=== PATIENT | female | born 1985 | race Caucasian/White ===

== ENCOUNTER 2019-04-24 14:07 | Emergency (ER) | payer OTHER ==
[~2019-04-24] VITALS: Ht 172.7 cm; Wt 154.2 kg
--- OUTSIDE RECORDS SUMMARY | 2019-04-24 14:09 | XMS REPORT | Continuity of Care Document ---
Author Author [facility] Address [address] [place] [address] Care Team Providers Care Live Truck Operator Name Role Phone Jeffery Cazares Rndphys PROVIDER, NO PCP PCP Unavailable Abhi Sánchez Admphys Abhi Sánchez Attphys Sachin Regalado Rndphys Allergies, Adverse Reactions, Alerts Allergen Type Severity Reaction Last Updated Verified Status codeine Allergy Rash April 22, 2018 Y Active latex Allergy Hives April 22, 2018 Y Active Medications Active Medications Medication Dose Units Route Sig Qty Days Start Date Discontinued Date Status Instructions Multivit With Iron,Minerals 1 TABLET PO Daily March 04, 2018 Active Aspirin 81 MG PO Daily 90 March 13, 2018 Active Carvedilol 25 MG PO Twice Daily April 22, 2018 Active Levothyroxine Sodium 100 MCG PO 0600 30 April 24, 2018 Active Tramadol Hcl 50 MG PO Three Times Daily PRN For Pain 20 April 24, 2018 Active Discontinued Medications Medication Dose Units Route Sig Qty Days Start Date Discontinued Date Status Instructions Lactobacillus Acidophilus 1 CAPSULE PO Daily March 04, 2018 April 22, 2018 Discontinued Carvedilol 12.5 MG PO Three Times Daily 270 March 13, 2018 April 22, 2018 Discontinued Hydroxyzine 25 MG PO Q4H PRN For Itching 30 March 13, 2018 April 24, 2018 Discontinued Potassium Chloride 40 MEQ PO Daily 60 March 13, 2018 April 22, 2018 Discontinued Furosemide 40 MG PO 0900,1400 180 March 13, 2018 April 22, 2018 Discontinued Levothyroxine Sodium 75 MCG PO 0600 90 March 13, 2018 April 24, 2018 Discontinued Sacubitril/Valsartan 49/51 1 TAB PO Three Times Daily 270 March 13, 2018 April 22, 2018 Discontinued Spironolactone 50 MG PO Every Morning With Breakfast 90 March 13, 2018 April 24, 2018 Discontinued Sacubitril/Valsartan 49/51 1 TAB PO Twice Daily April 22, 2018 April 24, 2018 Discontinued Torsemide 20 MG PO Daily April 22, 2018 April 24, 2018 Discontinued Problem List Active Problems Medical Problem Onset Date Status Systolic CHF Active Dyspnea Active Hypothyroid Active Hypothyroidism Active Non-ischemic cardiomyopathy Active Acute on chronic systolic heart failure Active Chronic systolic heart failure, ACC/AHA stage C Active Morbid obesity with BMI of 40.0-44.9, adult Active Chest pain Active HTN (hypertension) Active Cardiomyopathy Active Demand ischemia Active Inactive/Resolved Problems Medical Problem Onset Date Status Acute respiratory failure with hypoxia Resolved Procedures Procedure Date Status US Abdominal April 22, 2018 completed XR Chest 1 View Portable April 21, 2018 completed EKG 12 Lead in Emergency Room April 21, 2018 completed Relevant Diagnostic Tests and/or Laboratory Data Laboratory Results Test Date/Time Result Interp. Ref. Range Result Comment Sodium Level April 24, 2018 8:40am 140 mmol/L 136-145 Potassium Level April 24, 2018 8:40am 4.0 mmol/L 3.5-5.1 Chloride Level April 24, 2018 8:40am 104 mmol/L 98-107 Carbon Dioxide Level April 24, 2018 8:40am 26 mmol/L 22-29 Anion Gap April 24, 2018 8:40am 14 mmol/L 10-20 Blood Urea Nitrogen April 24, 2018 8:40am 33 mg/dL High 7.0-18.7 Creatinine April 24, 2018 8:40am 1.40 mg/dL High 0.6-1.1 Estimated GFR (MDRD) April 24, 2018 8:40am 43 Reference Range for Estimated GFR: Greater than 90 mL/min/1.73 m2 NOTE: The MDRD equation has not been validated for use with the elderly (over 70 years of age), women, patients with serious comorbid condition or persons with extremes of body size, muscle mass, or nutritional status. Glucose Level April 24, 2018 8:40am 82 mg/dL 70-105 Calcium Level April 24, 2018 8:40am 9.5 mg/dL 7.8-10.44 Total Bilirubin April 21, 2018 6:50pm 0.5 mg/dL 0.2-1.2 Serum Total Protein April 21, 2018 6:50pm 8.2 g/dL 6.0-8.3 Albumin April 21, 2018 6:50pm 4.2 g/dL 3.5-5.0 Globulin April 21, 2018 6:50pm 4.0 g/dL High 2.4-3.5 Albumin/Globulin Ratio April 21, 2018 6:50pm 1.1 g/dL Low 1.2-2.2 Cholesterol Level April 22, 2018 6:02am 216 mg/dl High Alkaline Phosphatase April 21, 2018 6:50pm 51 U/L 40-150 Aspartate Amino Transf (AST/SGOT) April 21, 2018 6:50pm 27 U/L 5-34 Creatine Kinase MB April 23, 2018 5:44am 0.9 ng/mL 0-6.6 Troponin I April 23, 2018 5:44am 0.383 ng/mL High Critical value! Reference Range 0.00 - 0.028 ng/mL Negative 0.029 - 0.29 ng/mL Indeterminate Greater or Equal to 0.3 ng/mL Strongly suggests OR Alanine Aminotransferase (ALT/SGPT) April 21, 2018 6:50pm 18 U/L 8-55 Triglycerides Level April 22, 2018 6:02am 177 mg/dL High HDL Cholesterol April 22, 2018 6:02am 27 mg/dL Adult HDL levels in terms of risk for Coronary Heart Disease > or Equal to 60 mg/dL Negative Risk < 40 mg/dL HIGH Risk LDL Cholesterol, Calculated April 22, 2018 6:02am 154 mg/dL Levels in terms of risk for coronary heart disease: Desirable: Less than 130 mg/dL Borderline High Risk: 130 - 159 mg/dL High Risk: Greater than 160 mg/dL Coronary Heart Disease Risk Ratio April 22, 2018 6:02am 8.0 Adult levels in terms of risk for Coronary Heart Disease: Dangerous level: Greater than 8.3 High: 5.6 - 8.3 Average: 3.7 - 5.6 Below average: 2.5 - 3.7 Protection probable: Less than 2.5 TSH 3rd Generation April 22, 2018 6:02am 8.3364 uIU/mL High 0.35-4.94 Serum Test, Qualitative April 21, 2018 4:35pm Negative Method of sensitivity- Indeterminant: results should be repeated after 48-72 hrs Positive: results may be detected as early as 1 day after the first missed menses. B-Type Natriuretic Peptide April 22, 2018 6:02am 464.6 pg/mL High 0-100 White Blood Count April 22, 2018 6:02am 6.9 thou/uL 4.8-10.8 Red Blood Count April 22, 2018 6:02am 5.19 mill/uL 4.20-5.40 Hemoglobin April 22, 2018 6:02am 12.7 g/dL 12.0-16.0 Hematocrit April 22, 2018 6:02am 40.8 % 36.0-47.0 Mean Corpuscular Volume April 22, 2018 6:02am 78.6 fL 78.0-98.0 Mean Corpuscular Hemoglobin April 22, 2018 6:02am 24.5 pg Low 27.0-31.0 Mean Corpuscular Hemoglobin Concent April 22, 2018 6:02am 31.2 g/dL Low 32.0-36.0 Red Cell Distribution Width April 22, 2018 6:02am 18.2 % High 11.5-14.5 Platelet Count April 22, 2018 6:02am 240 thou/uL 130-400 Mean Platelet Volume April 22, 2018 6:02am 8.4 fL 7.4-10.4 Neutrophils % April 22, 2018 6:02am 58.3 % 42.0-75.0 Lymphocytes % April 22, 2018 6:02am 30.9 % 21.0-51.0 Monocytes % April 22, 2018 6:02am 8.5 % 0.0-10.0 Eosinophils % April 22, 2018 6:02am 1.9 % 0.0-10.0 Basophils % April 22, 2018 6:02am 0.4 % 0.0-1.0 Neutrophils # April 22, 2018 6:02am 4.0 thou/uL 1.40-6.50 Lymphocytes # April 22, 2018 6:02am 2.1 thou/uL 1.20-3.40 Monocytes # April 22, 2018 6:02am 0.6 thou/uL High 0.11-0.59 Eosinophils # April 22, 2018 6:02am 0.1 thou/uL 0.0-0.7 Basophils # April 22, 2018 6:02am 0.0 thou/uL 0.0-0.2 Neutrophils % (Manual) April 21, 2018 4:35pm Not Reportable Microcytosis April 21, 2018 4:35pm SLIGHT=6-15 cells (100X) Hypochromia April 21, 2018 4:35pm SLIGHT=6-15 cells (100X) Chief Complaint and Reason for Visit Encounter Admit Date Chief Complaint Reason for Visit Discharged Inpatient April 21, 2018 9:04pm CHEST PAIN, INDETERMINATE TROPONIN Chest pain Demand ischemia of myocardium ACC/AHA stage C chronic systolic heart failure Morbid obesity with body mass index (BMI) of 40.0 to 44.9 in adult Nonischemic Cardiomyopathy Hospital Discharge Instructions No known hospital discharge instructions. Hospital Discharge Medications Medication Dose Units Route Sig Qty Days Order Date Status Instructions Lactobacillus Acidophilus 1 CAPSULE PO Daily March 04, 2018 Discontinued Multivit With Iron,Minerals 1 TABLET PO Daily March 04, 2018 Active Aspirin 81 MG PO Daily 90 March 13, 2018 Active Carvedilol 12.5 MG PO Three Times Daily 270 March 13, 2018 Discontinued Hydroxyzine 25 MG PO Q4H PRN For Itching 30 March 13, 2018 Discontinued Potassium Chloride 40 MEQ PO Daily 60 March 13, 2018 Discontinued Furosemide 40 MG PO 0900,1400 180 March 13, 2018 Discontinued Levothyroxine Sodium 75 MCG PO 0600 90 March 13, 2018 Discontinued Sacubitril/Valsartan 49/51 1 TAB PO Three Times Daily 270 March 13, 2018 Discontinued Spironolactone 50 MG PO Every Morning With Breakfast 90 March 13, 2018 Discontinued Carvedilol 25 MG PO Twice Daily April 22, 2018 Active Sacubitril/Valsartan 49/51 1 TAB PO Twice Daily April 22, 2018 Discontinued Torsemide 20 MG PO Daily April 22, 2018 Discontinued Levothyroxine Sodium 100 MCG PO 0600 30 April 24, 2018 Active Tramadol Hcl 50 MG PO Three Times Daily PRN For Pain 20 April 24, 2018 Active Encounters Encounter Facility Location Admit Date Discharge Date Attending Provider Discharged Inpatient [facility] April 21, 2018 9:04pm April 24, 2018 12:11pm Abhi Sánchez Departed Emergency [facility] EM[facility] April 21, 2018 4:05pm April 21, 2018 6:12pm Registered Clinical [facility] (REF FACILITY) April 14, 2018 10:13am JosieCaro fuentesy Discharged Recurring [facility] OUTPT CARDIAC REHAB/[facility] April 12, 2018 10:41am April 15, 2018 11:59pm AYLA SAWANT Encounter Diagnosis Onset Date Chest pain Demand ischemia of myocardium ACC/AHA stage C chronic systolic heart failure Morbid obesity with body mass index (BMI) of 40.0 to 44.9 in adult Nonischemic Cardiomyopathy Family History Query Response Instance Date Recorded Comment Family Stroke Yes Mother April 22, 2018 12:00am Family Myocardial Infarction Yes Mother April 22, 2018 12:00am Family Diabetes Yes Mother April 22, 2018 12:00am Family Coronary Artery Disease No Mother April 22, 2018 12:00am Family Congenital Heart Disease Yes Mother April 22, 2018 12:00am Family Colorectal Cancer No Mother April 22, 2018 12:00am Family Breast Cancer No Mother April 22, 2018 12:00am Functional Status No known functional status. Immunizations Name Date Given Type Influenza Virus March 05, 2018 Administered Pneumococcal March 05, 2018 Administered Payers Payer Name Policy Type Covered [employer] Covered [employer] Party Id Relationship Subscriber Subscriber Id UNINSURED Personal Payment (Rodrigues - No Insurance) BERYL MORRIS [id number] SELF Plan of Care Instructions Tramadol tablets Levothyroxine tablets Dc Taking Med Safely Heart Failure Dc ED Hypothyroidism ED Chest Pain Noncardiac Ch TAKE CONTROL OF HEART FAILURE Together we can! o Weigh yourself daily every morning after going to the bathroom. Call your health care provider if you gain 2 pounds in a day or 5 pounds in a week. Use the daily log provided to record your weight. o Eat no more than 2 grams (2000mg) sodium (salt) a day. Read food labels and throw away the salt shaker! o Your personal fluid limit: Take in no more than [ 1500 ] ml, equal to [ 6 ] Cups PER DAY. This includes anything that is liquid at room temperature. o Take your Medications as prescribed. Do not skip doses. If you can't afford your medications, please let your doctor know. o Watch for worsening heart failure symptoms such as increased swelling or increased shortness of breath with activity or at rest. o Follow-up with your primary care provider within 1 week of discharge from the hospital. o Maintain activity as tolerated with frequent rest periods. o If you smoke - smoking puts stress on your heart. We can help you quit smoking, just ask. o Expect a follow up call in one to three days if you are being discharged to your home. Please go to [email or web address]/myhfguide to learn even more about managing your heart failure using the free interactive workbook. Social History Query Response Date Recorded Comment Smoking Status Former smoker March 05, 2018 5:19am Vital Signs Vital Reading Result Reference Range Collection Date/Time Height 1.73 m April 22, 2018 12:00am Weight 133.039 kg April 24, 2018 5:45am Temperature 97.5 F 97.6 F-99.6 F April 24, 2018 11:33am Pulse 63 BPM 60-100 April 24, 2018 11:33am Respiration 18 RPM 12-20 April 24, 2018 11:33am Pulse Oximetry 97 % 95-100 April 24, 2018 11:33am Blood Pressure Systolic 124 90-140 April 24, 2018 11:33am Blood Pressure Diastolic 85 60-90 April 24, 2018 11:33am Body Mass Index 44.2 April 22, 2018 12:00am
--- OUTSIDE RECORDS SUMMARY | 2019-04-24 14:09 | XMS REPORT | Continuity of Care Document ---
Author Author [facility] Address [address] [place] [address] Care Team Providers Care [employer] Professional Name Role Phone Beryl Hall Rndphys Bairon Rodriguez Admphys Bairon Rodriguez Attphys Sachin Regalado Rndphys Bree Velez PCP Allergies, Adverse Reactions, Alerts Allergen Type Severity Reaction Last Updated Verified Status codeine Allergy March 05, 2018 Y Active latex Allergy March 05, 2018 Y Active Medications Active Medications Medication Dose Units Route Sig Qty Days Start Date Discontinued Date Status Instructions Lactobacillus Acidophilus 1 CAPSULE PO Daily March 04, 2018 Active Multivit With Iron,Minerals 1 TABLET PO Daily March 04, 2018 Active Aspirin 81 MG PO Daily 90 March 13, 2018 Active Carvedilol 12.5 MG PO Three Times Daily 270 March 13, 2018 Active Hydroxyzine 25 MG PO Q4H PRN For Itching 30 March 13, 2018 Active Potassium Chloride 40 MEQ PO Daily 60 March 13, 2018 Active Furosemide 40 MG PO 0900,1400 180 March 13, 2018 Active Levothyroxine Sodium 75 MCG PO 0600 90 March 13, 2018 Active Sacubitril/Valsartan 49/51 1 TAB PO Three Times Daily 270 March 13, 2018 Active Spironolactone 50 MG PO Every Morning With Breakfast 90 March 13, 2018 Active Problem List Active Problems Medical Problem Onset Date Status Systolic CHF Active Dyspnea Active Hypothyroid Active Hypothyroidism Active Acute on chronic systolic heart failure Active HTN (hypertension) Active Cardiomyopathy Active Inactive/Resolved Problems Medical Problem Onset Date Status Acute respiratory failure with hypoxia Resolved Procedures Procedure Date Status Urine Culture March 04, 2018 completed US Venous Doppler Bilat March 04, [address] Abdomen Pelvis W Con March 04, 2018 completed XR Chest 1 View Portable March 04, 2018 completed NM Lung Vent & Perf Imaging March 04, 2018 completed EKG 12 Lead in Emergency Room March 04, 2018 active US Pelvic March 04, 2018 completed Relevant Diagnostic Tests and/or Laboratory Data Laboratory Results Test Date/Time Result Interp. Ref. Range Result Comment Sodium Level March 13, 2018 4:32am 139 mmol/L 136-145 Potassium Level March 13, 2018 4:32am 4.1 mmol/L 3.5-5.1 Chloride Level March 13, 2018 4:32am 100 mmol/L 98-107 Carbon Dioxide Level March 13, 2018 4:32am 30 mmol/L High 22-29 Anion Gap March 13, 2018 4:32am 13 mmol/L 10-20 Blood Urea Nitrogen March 13, 2018 4:32am 14 mg/dL 7.0-18.7 Creatinine March 13, 2018 4:32am 0.85 mg/dL 0.6-1.1 Estimated GFR (MDRD) March 13, 2018 4:32am 77 Reference Range for Estimated GFR: Greater than 90 mL/min/1.73 m2 NOTE: The MDRD equation has not been validated for use with the elderly (over 70 years of age), women, patients with serious comorbid condition or persons with extremes of body size, muscle mass, or nutritional status. Glucose Level March 13, 2018 4:32am 106 mg/dL High 70-105 Calcium Level March 13, 2018 4:32am 9.3 mg/dL 7.8-10.44 Total Bilirubin March 05, 2018 6:01am 1.4 mg/dL High 0.2-1.2 Serum Total Protein March 05, 2018 6:01am 6.3 g/dL 6.0-8.3 Albumin March 05, 2018 6:01am 3.1 g/dL Low 3.5-5.0 Globulin March 05, 2018 6:01am 3.2 g/dL 2.4-3.5 Albumin/Globulin Ratio March 05, 2018 6:01am 1.0 g/dL Low 1.2-2.2 Cholesterol Level March 05, 2018 6:01am 112 mg/dl Alkaline Phosphatase March 05, 2018 6:01am 50 U/L 40-150 Aspartate Amino Transf (AST/SGOT) March 05, 2018 6:01am 63 U/L High 5-34 Creatine Kinase MB March 04, 2018 6:34pm 10.5 ng/mL High 0-6.6 Critical value! Troponin I March 04, 2018 9:44pm 14.503 ng/mL High Critical value! Reference Range 0.00 - 0.028 ng/mL Negative 0.029 - 0.29 ng/mL Indeterminate Greater or Equal to 0.3 ng/mL Strongly suggests IN Troponin I March 04, 2018 2:26pm 18.121 ng/mL High Reference Range 0.00 - 0.028 ng/mL Negative 0.029 - 0.29 ng/mL Indeterminate Greater or Equal to 0.3 ng/mL Strongly suggests IN Alanine Aminotransferase (ALT/SGPT) March 05, 2018 6:01am 42 U/L 8-55 Lipase March 04, 2018 2:26pm 124 U/L High 8-78 Triglycerides Level March 05, 2018 6:01am 73 mg/dL HDL Cholesterol March 05, 2018 6:01am 18 mg/dL Adult HDL levels in terms of risk for Coronary Heart Disease > or Equal to 60 mg/dL Negative Risk < 40 mg/dL HIGH Risk LDL Cholesterol, Calculated March 05, 2018 6:01am 79 mg/dL Levels in terms of risk for coronary heart disease: Desirable: Less than 130 mg/dL Borderline High Risk: 130 - 159 mg/dL High Risk: Greater than 160 mg/dL Coronary Heart Disease Risk Ratio March 05, 2018 6:01am 6.2 Adult levels in terms of risk for Coronary Heart Disease: Dangerous level: Greater than 8.3 High: 5.6 - 8.3 Average: 3.7 - 5.6 Below average: 2.5 - 3.7 Protection probable: Less than 2.5 Free Thyroxine March 05, 2018 6:01am 0.82 ng/dL 0.70-1.48 TSH 3rd Generation March 04, 2018 2:26pm 13.2594 uIU/mL High 0.35-4.94 Urine Test March 04, 2018 2:26pm Negative Method of sensitivity- INDETERMINANT: results should be repeated after 48-72 hrs POSITIVE: results may be detected as early as 1 day after the first missed period A dilute urine specimen may not contain sales representative livestock levels of hCG. If is still suspected, a first morning urine specimen OR a random blood specimen should be obtained from the patient 48-72 hours later and re-tested. Urine Specific [place] March 04, 2018 2:26pm 1.025 1.002-1.036 B-Type Natriuretic Peptide March 05, 2018 6:01am 2827.2 pg/mL High 0-100 Hemoglobin A1c March 05, 2018 6:01am 5.8 % 4.0-6.0 Therapeutic goals for glycemic control (ADA) Adults: - Goal of therapy: Less than 7.0% HbA1c - Action suggested: Greater than 8.0% HbA1c Pediatric patients: - Toddlers and preschoolers: Less than 8.5% (but Greater than 7.5%) - School age (6-12 years): Less than 8% - Adolescents and young adults (13-19 years): Less than 7.5% Diagnosing diabetes (ADA) - HbA1c: Greater than or equal to 6.5% Values of 5.7 - 6.4% indicate HIGH risk for developing Diabetes International Expert Committee Report on the Role of the A1C Assay in the Diagnosis of Diabetes. Diabetes Care 2009 September;32(7):1416-5614 ADA, Diagnosis & classification of diabetes mellitus. Diabetes Care 2010; 33 Suppl 1:S62 Lactic Acid Level March 04, 2018 9:44pm 1.7 mmol/L 0.5-2.2 White Blood Count March 05, 2018 6:01am 8.9 thou/uL 4.8-10.8 Red Blood Count March 05, 2018 6:01am 4.66 mill/uL 4.20-5.40 Hemoglobin March 11, 2018 10:33am 11.7 g/dL Low 12.0-16.0 Hematocrit March 11, 2018 10:33am 39.8 % 36.0-47.0 Mean Corpuscular Volume March 05, 2018 6:01am 77.8 fL Low 78.0-98.0 Mean Corpuscular Hemoglobin March 05, 2018 6:01am 24.2 pg Low 27.0-31.0 Mean Corpuscular Hemoglobin Concent March 05, 2018 6:01am 31.1 g/dL Low 32.0-36.0 Red Cell Distribution Width March 05, 2018 6:01am 15.3 % High 11.5-14.5 Platelet Count March 11, 2018 10:33am 278 thou/uL 130-400 Mean Platelet Volume March 05, 2018 6:01am 7.8 fL 7.4-10.4 Neutrophils % March 04, 2018 2:26pm 76.1 % High 42.0-75.0 Lymphocytes % March 04, 2018 2:26pm 18.1 % Low 21.0-51.0 Monocytes % March 04, 2018 2:26pm 4.8 % 0.0-10.0 Eosinophils % March 04, 2018 2:26pm 0.2 % 0.0-10.0 Basophils % March 04, 2018 2:26pm 0.8 % 0.0-1.0 Neutrophils # March 04, 2018 2:26pm 7.7 thou/uL High 1.40-6.50 Lymphocytes # March 04, 2018 2:26pm 1.8 thou/uL 1.20-3.40 Monocytes # March 04, 2018 2:26pm 0.5 thou/uL 0.11-0.59 Eosinophils # March 04, 2018 2:26pm 0.0 thou/uL 0.0-0.7 Basophils # March 04, 2018 2:26pm 0.1 thou/uL 0.0-0.2 Neutrophils % (Manual) March 05, 2018 6:01am 68 % 42-75 Lymphocytes % (Manual) March 05, 2018 6:01am 29 % 21-51 Monocytes % (Manual) March 05, 2018 6:01am 2 % 0-10 Eosinophils % (Manual) March 05, 2018 6:01am 1 % 0-10 Microcytosis March 04, 2018 2:26pm MODERATE=15-30 cells (100X) High Hypochromia March 04, 2018 2:26pm MODERATE=16-30 cells (100X) High Ovalocytes March 04, 2018 2:26pm SLIGHT=2-5 cells (100X) Activated Clotting Time March 08, 2018 12:15pm 137 sec 96-166 Urine Color March 04, 2018 2:26pm Yellow Urine Clarity March 04, 2018 2:26pm Slightly Cloudy Urine pH March 04, 2018 2:26pm 6.5 5.0-9.0 Urine Leukocyte Esterase March 04, 2018 2:26pm Negative Urine Nitrite March 04, 2018 2:26pm Negative Urine Protein March 04, 2018 2:26pm > or equal to 300 mg/dL High Urine Glucose (UA) March 04, 2018 2:26pm Negative mg/dL Urine Ketones March 04, 2018 2:26pm Negative mg/dL Urine Urobilinogen March 04, 2018 2:26pm 1.0 mg/dL Urine Bilirubin March 04, 2018 2:26pm Small High CAUTIONUrine Bilirubin has a high incidence of false positive results due to urine color interferance. Interpret results in conjunction with other clinical findings. Urine Blood March 04, 2018 2:26pm Trace High Urine RBC March 04, 2018 2:26pm 0-3 HPF Urine WBC March 04, 2018 2:26pm 0-3 HPF GLITTER CELLS Urine Squamous Epithelial Cells March 04, 2018 2:26pm 4-6 HPF High Urine Bacteria March 04, 2018 2:26pm 3+ HPF High Microbiology Results Procedure Source Result Collection Date/Time Result Date/Time Urine Culture Urine voided No results entered March 04, 2018 2:26pm Chief Complaint and Reason for Visit Encounter Admit Date Chief Complaint Reason for Visit Discharged Inpatient March 04, 2018 6:10pm NSTEMI NEW ONSET CHF Acute on chronic systolic heart failure Cardiomyopathy Dyspnea Hypothyroidism Systolic Congestive Heart Failure Hypertension Acute respiratory failure with hypoxia Hospital Discharge Instructions Additional Discharge Instructions FOCUS: Transition from Acute Care after Discharge GOAL: Successful transition to care in the community YOUR TASKS: (1) review all information outlined in your discharge packet (2) follow any instructions outlined in your discharge packet (3) contact your primary care provider if you have questions or need additional assistance See patient discharge instruction sheet for detailed teaching. Patient verbalizes understanding of medications and is able to verbalize follow-up care. See Discharge Plan for additional discharge information. Patient secured in private vehicle prior to departure. Instruction/Education Provided Levothyroxine tablets Carvedilol tablets Furosemide tablets Spironolactone tablets Dc Taking Med Safely JOHNIE Heart Failure Dc Heart Attack Dc Hypertension Dc Heart Attack Warning Signs TAKE CONTROL OF HEART FAILURE Together we [...] limit: Take in no more than [ ] ml, equal to [ ] Cups PER DAY. This includes anything [...] heart failure using the free interactive workbook. ZONE TOOL - ACUTE MYOCARDIAL INFARCTION (Heart Attack) GREEN ZONE All Clear (GOAL): No problem breathing No chest pain or discomfort, like pressure on your chest No pain or discomfort in one or both arms, the back, neck, jaw or stomach No nausea/vomiting, dizziness or cold sweats No loss of consciousness, weakness or confusion Common to feel a little depressed or frustrated - talk to family & friends, remain social! Doing Great! You re not having any symptoms described above Take medications as ordered Maintain healthy weight Eat foods low in salt (Heart Healthy Diet) Stop smoking ask your doctor how! Limit alcohol Keep all doctor appointments Attending Cardiac Rehab YELLOW ZONE Warning - If you have the following: Abnormal levels of cholesterol High blood pressure - 150/95 or higher Smoking cigarettes, e-cigarettes, chewing tobacco, cigars or pipes - Call [phone] Diabetes: check blood sugar daily & consistently - if your blood sugar before eating is greater than 140 call your doctor Stress and strong emotions such as depression, anxiety and anger talk to family & friends, remain social! Lack of physical activity start walking a little bit a day Act Today! Call your doctor & inform them of your symptoms Ask your doctor about how to quit smoking Eat a heart healthy diet, exercise and take your medications as directed Call your home health nurse: Phone # Or call your doctor: Phone # RED ZONE Emergency Chest pain or pressure, squeezing or fullness feeling may come and go Pain or discomfort in one or both arms, the back, neck, jaw or stomach Shortness of breath with or without chest discomfort Breaking out into a cold sweat, dizziness, nausea or vomiting Weakness, fainting or confusion can be symptoms for older adults Women tend to have shortness of breath, nausea and vomiting, back pain or jaw pain Act NOW! Call 911 Call your doctor Phone # Hospital Discharge Medications Medication Dose Units Route Sig Qty Days Order Date Status Instructions Lactobacillus Acidophilus 1 CAPSULE PO Daily March 04, 2018 Active Multivit With Iron,Minerals 1 TABLET PO Daily March 04, 2018 Active Aspirin 81 MG PO Daily 90 March 13, 2018 Active Carvedilol 12.5 MG PO Three Times Daily 270 March 13, 2018 Active Hydroxyzine 25 MG PO Q4H PRN For Itching 30 March 13, 2018 Active Potassium Chloride 40 MEQ PO Daily 60 March 13, 2018 Active Furosemide 40 MG PO 0900,1400 180 March 13, 2018 Active Levothyroxine Sodium 75 MCG PO 0600 90 March 13, 2018 Active Sacubitril/Valsartan 49/51 1 TAB PO Three Times Daily 270 March 13, 2018 Active Spironolactone 50 MG PO Every Morning With Breakfast 90 March 13, 2018 Active Encounters Encounter Facility Location Admit Date Discharge Date Attending Provider Discharged Inpatient [facility] March 04, 2018 6:10pm March 13, 2018 12:27pm Bairon Rodriguez Depart Emergency [facility] March 04, 2018 2:15pm March 04, 2018 4:37pm Encounter Diagnosis Onset Date Acute on chronic systolic heart failure Cardiomyopathy Dyspnea Hypothyroidism Systolic Congestive Heart Failure Hypertension Acute respiratory failure with hypoxia Family History Query Response Instance Date Recorded Comment Family Stroke Yes Mother March 04, 2018 9:07pm Family Myocardial Infarction Yes Mother March 04, 2018 9:07pm Family Diabetes Yes Mother March 04, 2018 9:07pm Family Coronary Artery Disease No Mother March 04, 2018 9:07pm Family Congenital Heart Disease Yes Mother March 04, 2018 9:07pm Family Colorectal Cancer No Mother March 04, 2018 9:07pm Family Breast Cancer No Mother March 04, 2018 9:07pm Functional Status No known functional status. Immunizations Name Date Given Type Influenza Virus March 05, 2018 Administered Pneumococcal March 05, 2018 Administered Payers Payer Name Policy Type Covered Libertarian Covered Libertarian Id Relationship Subscriber Subscriber Id [facility] Preferred Provider Organization (PPO) DIANNE MCPHERSONROUGHS [id number] SPOUSE DIANNE MCPHERSONROUGHS [id number] Plan of Care Instructions Levothyroxine tablets Carvedilol tablets Furosemide tablets Spironolactone tablets Dc Taking Med Safely JOHNIE Heart Failure Dc Heart Attack Dc Hypertension Dc Heart Attack Warning Signs TAKE CONTROL OF HEART FAILURE Together we [...] limit: Take in no more than [ ] ml, equal to [ ] Cups PER DAY. This includes anything [...] heart failure using the free interactive workbook. ZONE TOOL - ACUTE MYOCARDIAL INFARCTION (Heart Attack) GREEN ZONE All Clear (GOAL): No problem breathing No chest pain or discomfort, like pressure on your chest No pain or discomfort in one or both arms, the back, neck, jaw or stomach No nausea/vomiting, dizziness or cold sweats No loss of consciousness, weakness or confusion Common to feel a little depressed or frustrated - talk to family & friends, remain social! Doing Great! You re not having any symptoms described above Take medications as ordered Maintain healthy weight Eat foods low in salt (Heart Healthy Diet) Stop smoking ask your doctor how! Limit alcohol Keep all doctor appointments Attending Cardiac Rehab YELLOW ZONE Warning - If you have the following: Abnormal levels of cholesterol High blood pressure - 150/95 or higher Smoking cigarettes, e-cigarettes, chewing tobacco, cigars or pipes - Call [phone] Diabetes: check blood sugar daily & consistently - if your blood sugar before eating is greater than 140 call your doctor Stress and strong emotions such as depression, anxiety and anger talk to family & friends, remain social! Lack of physical activity start walking a little bit a day Act Today! Call your doctor & inform them of your symptoms Ask your doctor about how to quit smoking Eat a heart healthy diet, exercise and take your medications as directed Call your home health nurse: Phone # Or call your doctor: Phone # RED ZONE Emergency Chest pain or pressure, squeezing or fullness feeling may come and go Pain or discomfort in one or both arms, the back, neck, jaw or stomach Shortness of breath with or without chest discomfort Breaking out into a cold sweat, dizziness, nausea or vomiting Weakness, fainting or confusion can be symptoms for older adults Women tend to have shortness of breath, nausea and vomiting, back pain or jaw pain Act NOW! Call 911 Call your doctor Phone # Social History Query Response Date Recorded Comment Smoking Status Former smoker March 05, 2018 5:19am Vital Signs Vital Reading Result Reference Range Collection Date/Time Height 1.73 m March 10, 2018 2:35pm Weight 147.503 kg March 13, 2018 5:00am Temperature 98.7 F 97.6 F-99.6 F March 13, 2018 12:03pm Pulse 82 BPM 60-100 March 13, 2018 12:03pm Respiration 17 RPM 12-20 March 13, 2018 12:03pm Pulse Oximetry 95 % 95-100 March 13, 2018 12:03pm Blood Pressure Systolic 131 90-140 March 13, 2018 12:03pm Blood Pressure Diastolic 87 60-90 March 13, 2018 12:03pm Body Mass Index 52.0 March 10, 2018 2:35pm
--- OUTSIDE RECORDS SUMMARY | 2019-04-24 14:10 | XMS REPORT ---
Author Author [facility] Address Unknown Phone Unavailable Care Team Providers Care Operating Room Specialist Name Role Phone Gonzalo Abhi Unavailable Unavailable ELADIA ARREDONDO Unavailable Unavailable ROBINSON MICHAEL Unavailable Unavailable Danny CARRENO Unavailable Unavailable Problems This patient has no known problems. Allergies, Adverse Reactions, Alerts This patient has no known allergies or adverse reactions. Medications This patient has no known medications. Procedures and Interventions Procedure Date / Time Performed Performing Clinician [id number] 2018-11-30 00:00:00 Results Test Description Test Time Test Comments Text Results Atomic Results Result Comments Chemistry 2018-04-24 09:30:00 Chemistry (test code=NA-T) 140 mmol/L 136-145 Chemistry (test code=K-T) 4.0 mmol/L 3.5-5.1 Chemistry (test code=CL) 104 mmol/L 98-107 Chemistry (test code=CO2) 26 mmol/L 22-29 Chemistry (test code=ANGP) 14 mmol/L 10-20 Chemistry (test code=BUN) 33 mg/dL 7.0-18.7 Chemistry (test code=CREATT) 1.40 mg/dL 0.6-1.1 Chemistry (test code=EGFRMDRD) 43 Reference Range for Estimated GFR: Greater than 90 mL/min/1.73 m2NOTE:The MDRD equation has not been validated for use with theelderly (over 70 years of age), women, patien tswith serious comorbid condition or persons with extremes ofbody size, muscle mass, or nutritional status. Chemistry (test code=GLU-T) 82 mg/dL 70-105 Chemistry (test code=CA) 9.5 mg/dL 7.8-10.44 [id number] 07:59:00* Test Item Value Reference Range Comments Chemistry (test code=NA-T) 137 mmol/L 136-145 Chemistry (test code=K-T) 3.7 mmol/L 3.5-5.1 Chemistry (test code=CL) 103 mmol/L 98-107 Chemistry (test code=CO2) 26 mmol/L 22-29 Chemistry (test code=ANGP) 12 mmol/L 10-20 Chemistry (test code=BUN) 29 mg/dL 7.0-18.7 Chemistry (test code=CREATT) 1.44 mg/dL 0.6-1.1 Chemistry (test code=EGFRMDRD) 42 Reference Range for Estimated GFR: Greater than 90 mL/min/1.73 m2NOTE:The MDRD equation has not been validated for use with theelderly (over 70 years of age), women, patien tswith serious comorbid condition or persons with extremes ofbody size, muscle mass, or nutritional status. Chemistry (test code=GLU-T) 83 mg/dL 70-105 Chemistry (test code=CA) 9.3 mg/dL 7.8-10.44 Pqiatpfeg4591-92-24 06:53:00* Test Item Value Reference Range Comments Chemistry (test code=CCTPI) VITO.SES1@0634 Chemistry (test code=TROPI-R) 0.383 ng/mL < 0.028 Critical value! Reference Range 0.00 - 0.028 ng/mL Negative 0.029 - 0.29 ng/mL Indeterminate Greater or Equal to 0.3 ng/mL Strongly suggests AL Chemistry (test code=CCTPI) VITO.SES1@0634 Chemistry (test code=TROPI-R) 0.383 ng/mL < 0.028 Critical value! Reference Range 0.00 - 0.028 ng/mL Negative 0.029 - 0.29 ng/mL Indeterminate Greater or Equal to 0.3 ng/mL Strongly suggests AL [id number] 06:53:00* Test Item Value Reference Range Comments Chemistry (test code=CKMBM-T) 0.9 ng/mL 0-6.6 Lxzqjlaix5201-80-11 07:05:00* Test Item Value Reference Range Comments Chemistry (test code=CCTPI) SMANOR.ASN@0646 Chemistry (test code=TROPI-R) 0.372 ng/mL < 0.028 Critical value! Reference Range 0.00 - 0.028 ng/mL Negative 0.029 - 0.29 ng/mL Indeterminate Greater or Equal to 0.3 ng/mL Strongly suggests AL Chemistry (test code=CCTPI) SMANOR.ASN@0646 Chemistry (test code=TROPI-R) 0.372 ng/mL < 0.028 Critical value! Reference Range 0.00 - 0.028 ng/mL Negative 0.029 - 0.29 ng/mL Indeterminate Greater or Equal to 0.3 ng/mL Strongly suggests AL Rmbrsmqvz1424-34-19 07:05:00* Test Item Value Reference Range Comments Chemistry (test code=CKMBM-T) 1.1 ng/mL 0-6.6 Chemistry - Bfblrvjy4464-51-66 06:55:00* Test Item Value Reference Range Comments Chemistry - Specials (test code=TSH3) 8.3364 uIU/mL 0.35-4.94 Comment IN [id number] 06:43:00* Test Item Value Reference Range Comments Hematology (test code=WBCT) 6.9 thou/uL 4.8-10.8 Hematology (test code=RBCT) 5.19 mill/uL 4.20-5.40 Hematology (test code=HGBT) 12.7 g/dL 12.0-16.0 Hematology (test code=HCTT) 40.8 % 36.0-47.0 Hematology (test code=MCV) 78.6 fL 78.0-98.0 Hematology (test code=MCH) 24.5 pg 27.0-31.0 Hematology (test code=MCHC) 31.2 g/dL 32.0-36.0 Hematology (test code=RDW) 18.2 % 11.5-14.5 Hematology (test code=PLTT) 240 thou/uL 130-400 Hematology (test code=MPV) 8.4 fL 7.4-10.4 Hematology (test code=%NEUT) 58.3 % 42.0-75.0 Hematology (test code=%LYMPH) 30.9 % 21.0-51.0 Hematology (test code=%MONO) 8.5 % 0.0-10.0 Hematology (test code=%EOS) 1.9 % 0.0-10.0 Hematology (test code=%BASO) 0.4 % 0.0-1.0 Hematology (test code=NEUT#) 4.0 thou/uL 1.40-6.50 Hematology (test code=LYMPH#) 2.1 thou/uL 1.20-3.40 Hematology (test code=MONO#) 0.6 thou/uL 0.11-0.59 Hematology (test code=EOS#) 0.1 thou/uL 0.0-0.7 Hematology (test code=BASO#) 0.0 thou/uL 0.0-0.2 Comment [facility] [place] - BNP, HgbA1c, [id number] 06:40:00* Test Item Value Reference Range Comments Chemistry - BNP, HgbA1c, PTHi (test code=BNP) 464.6 pg/mL 0-100 Comment IN LWJtsmuwppt8977-30-27 06:38:00* Test Item Value Reference Range Comments Chemistry (test code=NA-T) 139 mmol/L 136-145 Chemistry (test code=K-T) 3.7 mmol/L 3.5-5.1 Chemistry (test code=CL) 104 mmol/L 98-107 Chemistry (test code=CO2) 26 mmol/L 22-29 Chemistry (test code=ANGP) 13 mmol/L 10-20 Chemistry (test code=BUN) 28 mg/dL 7.0-18.7 Chemistry (test code=CREATT) 1.44 mg/dL 0.6-1.1 Chemistry (test code=EGFRMDRD) 42 Reference Range for Estimated GFR: Greater than 90 mL/min/1.73 m2NOTE:The MDRD equation has not been validated for use with [facility] (over 70 years of age), women, patien tswith serious comorbid condition or persons with extremes ofbody size, muscle mass, or nutritional status. Chemistry (test code=GLU-T) 97 mg/dL 70-105 Chemistry (test code=CA) 9.4 mg/dL 7.8-10.44 Comment IN FYLlnhbjiwl4032-40-01 06:38:00* Test Item Value Reference Range Comments Chemistry (test code=CHOL) 216 mg/dl < 200 Desired Chemistry (test code=TRIG) 177 mg/dL Less than 150 Chemistry (test code=HDL) 27 mg/dL >60 Neg Risk Adult HDL levels in terms of risk for Coronary Heart Disease > or Equal to 60 mg/dL Negative Risk < 40 mg/dL HIGH Risk Chemistry (test code=LDL) 154 mg/dL Levels in terms of risk for coronary heart disease: Desirable: Less than 130 mg/dL Borderline High Risk: 130 - 159 mg/dL High Risk: Greater than 160 mg/dL Chemistry (test code=CRISK) 8.0 Less than 4.5 Adult levels in terms of risk for Coronary Heart Disease: Dangerous level: Greater than 8.3 High: 5.6 - 8.3 Average: 3.7 - 5.6 Below average: 2.5 - 3.7 Protection probable: Less than 2.5 Comment IN ATBfihxndpm6692-02-97 01:50:00* Test Item Value Reference Range Comments Chemistry (test code=CCTPI) RESULT DECREASING Chemistry (test code=TROPI-R) 0.365 ng/mL < 0.028 Critical value! Reference Range 0.00 - 0.028 ng/mL Negative 0.029 - 0.29 ng/mL Indeterminate Greater or Equal to 0.3 ng/mL Strongly suggests AL Chemistry (test code=CCTPI) RESULT DECREASING Chemistry (test code=TROPI-R) 0.365 ng/mL < 0.028 Critical value! Reference Range 0.00 - 0.028 ng/mL Negative 0.029 - 0.29 ng/mL Indeterminate Greater or Equal to 0.3 ng/mL Strongly suggests AL Dzqucclry3684-63-78 01:50:00* Test Item Value Reference Range Comments Chemistry (test code=CKMBM-T) 1.1 ng/mL 0-6.6 Jrbhwjcon8337-09-76 22:51:00* Test Item Value Reference Range Comments Chemistry (test code=CCTPI) ERS.AMW@2230 Chemistry (test code=TROPI-R) 0.414 ng/mL < 0.028 Critical value! Reference Range 0.00 - 0.028 ng/mL Negative 0.029 - 0.29 ng/mL Indeterminate Greater or Equal to 0.3 ng/mL Strongly suggests AL Chemistry (test code=CCTPI) ERS.AMW@2230 Chemistry (test code=TROPI-R) 0.414 ng/mL < 0.028 Critical value! Reference Range 0.00 - 0.028 ng/mL Negative 0.029 - 0.29 ng/mL Indeterminate Greater or Equal to 0.3 ng/mL Strongly suggests AL Srpzfglcr5869-76-59 22:51:00* Test Item Value Reference Range Comments Chemistry (test code=CKMBM-T) 1.5 ng/mL 0-6.6 Spvzvucdvp3396-69-91 20:57:00* Test Item Value Reference Range Comments Hematology (test code=WBCT) 7.7 thou/uL 4.8-10.8 Hematology (test code=RBCT) 5.58 mill/uL 4.20-5.40 Hematology (test code=HGBT) 13.7 g/dL 12.0-16.0 Hematology (test code=HCTT) 43.9 % 36.0-47.0 Hematology (test code=MCV) 78.6 fL 78.0-98.0 Hematology (test code=MCH) 24.6 pg 27.0-31.0 Hematology (test code=MCHC) 31.3 g/dL 32.0-36.0 Hematology (test code=RDW) 18.3 % 11.5-14.5 Hematology (test code=PLTT) 264 thou/uL 130-400 Hematology (test code=MPV) 8.8 fL 7.4-10.4 Hematology (test code=%NEUT) 66.5 % 42.0-75.0 Hematology (test code=%LYMPH) 24.0 % 21.0-51.0 Hematology (test code=%MONO) 6.6 % 0.0-10.0 Hematology (test code=%EOS) 1.9 % 0.0-10.0 Hematology (test code=%BASO) 1.0 % 0.0-1.0 Hematology (test code=NEUT#) 5.1 thou/uL 1.40-6.50 Hematology (test code=LYMPH#) 1.8 thou/uL 1.20-3.40 Hematology (test code=MONO#) 0.5 thou/uL 0.11-0.59 Hematology (test code=EOS#) 0.1 thou/uL 0.0-0.7 Hematology (test code=BASO#) 0.1 thou/uL 0.0-0.2 [id number] 19:30:00* Test Item Value Reference Range Comments Chemistry (test code=CCTPI) ERS.AMW@1929 Chemistry (test code=TROPI-R) 0.385 ng/mL < 0.028 Critical value! Reference Range 0.00 - 0.028 ng/mL Negative 0.029 - 0.29 ng/mL Indeterminate Greater or Equal to 0.3 ng/mL Strongly suggests AL Chemistry - BNP, HgbA1c, [id number] 19:28:00* Test Item Value Reference Range Comments Chemistry - BNP, HgbA1c, PTHi (test code=BNP) 455.7 pg/mL 0-100 [id number] 19:20:00* Test Item Value Reference Range Comments Chemistry (test code=NA-T) 140 mmol/L 136-145 Chemistry (test code=K-T) 4.3 mmol/L 3.5-5.1 Chemistry (test code=CL) 104 mmol/L 98-107 Chemistry (test code=CO2) 25 mmol/L 22-29 Chemistry (test code=ANGP) 15 mmol/L 10-20 Chemistry (test code=BUN) 29 mg/dL 7.0-18.7 Chemistry (test code=CREATT) 1.38 mg/dL 0.6-1.1 Chemistry (test code=EGFRMDRD) 44 Reference Range for Estimated GFR: Greater than 90 mL/min/1.73 m2NOTE:The MDRD equation has not been validated for use with theelderly (over 70 years of age), women, patien tswith serious comorbid condition or persons with extremes ofbody size, muscle mass, or nutritional status. Chemistry (test code=GLU-T) 98 mg/dL 70-105 Chemistry (test code=CA) 10.0 mg/dL 7.8-10.44 Chemistry (test code=TBILI) 0.5 mg/dL 0.2-1.2 Chemistry (test code=TP) 8.2 g/dL 6.0-8.3 Chemistry (test code=ALB) 4.2 g/dL 3.5-5.0 Chemistry (test code=GLOB) 4.0 g/dL 2.4-3.5 Chemistry (test code=AG) 1.1 g/dL 1.2-2.2 Chemistry (test code=ALP) 51 U/L 40-150 Chemistry (test code=AST) 27 U/L 5-34 Chemistry (test code=ALT) 18 U/L 8-55 Chemistry - [id number] 17:28:00* Test Item Value Reference Range Comments Chemistry - Specials (test code=BHCGST) Negative NEGATIVE Method of sensitivity- Indeterminant: results should be repeated after 48-72 hrs Positive: results may be detected as early as 1 day after the first missed menses. [id number] 17:26:00* Test Item Value Reference Range Comments Chemistry (test code=CCTPI) DR. GUERRERO@1700 Chemistry (test code=TROPI-R) 0.454 ng/mL < 0.028 Critical value! Reference Range 0.00 - 0.028 ng/mL Negative 0.029 - 0.29 ng/mL Indeterminate Greater or Equal to 0.3 ng/mL Strongly suggests AL Chemistry (test code=CCTPI) DR. GUERRERO@1700 Chemistry (test code=TROPI-R) 0.454 ng/mL < 0.028 Critical value! Reference Range 0.00 - 0.028 ng/mL Negative 0.029 - 0.29 ng/mL Indeterminate Greater or Equal to 0.3 ng/mL Strongly suggests AL Ogkecnand6647-49-33 17:26:00* Test Item Value Reference Range Comments Chemistry (test code=CKMBM-T) 1.6 ng/mL 0-6.6 Xgwqyboics2660-18-51 16:56:00* Test Item Value Reference Range Comments Hematology (test code=WBCT) 7.2 thou/uL 4.8-10.8 Hematology (test code=RBCT) 5.77 mill/uL 4.20-5.40 Hematology (test code=HGBT) 13.5 g/dL 12.0-16.0 Hematology (test code=HCTT) 43.9 % 36.0-47.0 Hematology (test code=MCV) 76.0 fL 78.0-98.0 Hematology (test code=MCH) 23.3 pg 27.0-31.0 Hematology (test code=MCHC) 30.7 g/dL 32.0-36.0 Hematology (test code=RDW) 18.6 % 11.5-14.5 Hematology (test code=PLTT) 259 thou/uL 130-400 Hematology (test code=MPV) 6.5 fL 7.4-10.4 Hematology (test code=%NEUT) 70.5 % 42.0-75.0 Hematology (test code=%LYMPH) 21.5 % 21.0-51.0 Hematology (test code=%MONO) 6.0 % 0.0-10.0 Hematology (test code=%EOS) 1.4 % 0.0-10.0 Hematology (test code=%BASO) 0.6 % 0.0-1.0 Hematology (test code=NEUT#) 5.1 thou/uL 1.40-6.50 Hematology (test code=LYMPH#) 1.6 thou/uL 1.20-3.40 Hematology (test code=MONO#) 0.4 thou/uL 0.11-0.59 Hematology (test code=EOS#) 0.1 thou/uL 0.0-0.7 Hematology (test code=BASO#) 0.0 thou/uL 0.0-0.2 Hematology (test code=AL) SLIGHT=6-15 cells (100X) 0-5/hpf Hematology (test code=HYPO) SLIGHT=6-15 cells (100X) 0-5/hpf [id number] 16:55:00* Test Item Value Reference Range Comments Chemistry (test code=NA-T) 140 mmol/L 136-145 Chemistry (test code=K-T) 4.2 mmol/L 3.5-5.1 Chemistry (test code=CL) 104 mmol/L 98-107 Chemistry (test code=CO2) 23 mmol/L 22-29 Chemistry (test code=ANGP) 17 mmol/L 10-20 Chemistry (test code=BUN) 29 mg/dL 7.0-18.7 Chemistry (test code=CREATT) 1.38 mg/dL 0.6-1.1 Chemistry (test code=EGFRMDRD) 44 Reference Range for Estimated GFR: Greater than 90 mL/min/1.73 m2NOTE:The MDRD equation has not been validated for use with theelderly (over 70 years of age), women, patien tswith serious comorbid condition or persons with extremes ofbody size, muscle mass, or nutritional status. Chemistry (test code=GLU-T) 112 mg/dL 70-105 Chemistry (test code=CA) 10.1 mg/dL 7.8-10.44 Chemistry (test code=TBILI) 0.5 mg/dL 0.2-1.2 Chemistry (test code=TP) 8.3 g/dL 6.0-8.3 Chemistry (test code=ALB) 4.2 g/dL 3.5-5.0 Chemistry (test code=GLOB) 4.1 g/dL 2.4-3.5 Chemistry (test code=AG) 1.0 g/dL 1.2-2.2 Chemistry (test code=ALP) 47 U/L 40-150 Chemistry (test code=AST) 29 U/L 5-34 Chemistry (test code=ALT) 20 U/L 8-55 [id number] 06:08:00* Test Item Value Reference Range Comments Chemistry (test code=NA-T) 139 mmol/L 136-145 Chemistry (test code=K-T) 4.1 mmol/L 3.5-5.1 Chemistry (test code=CL) 100 mmol/L 98-107 Chemistry (test code=CO2) 30 mmol/L 22-29 Chemistry (test code=ANGP) 13 mmol/L 10-20 Chemistry (test code=BUN) 14 mg/dL 7.0-18.7 Chemistry (test code=CREATT) 0.85 mg/dL 0.6-1.1 Chemistry (test code=EGFRMDRD) 77 Reference Range for Estimated GFR: Greater than 90 mL/min/1.73 m2NOTE:The MDRD equation has not been validated for use with theelderly (over 70 years of age), women, patien tswith serious comorbid condition or persons with extremes ofbody size, muscle mass, or nutritional status. Chemistry (test code=GLU-T) 106 mg/dL 70-105 Chemistry (test code=CA) 9.3 mg/dL 7.8-10.44 [id number] 06:56:00* Test Item Value Reference Range Comments Chemistry (test code=NA-T) 137 mmol/L 136-145 Chemistry (test code=K-T) 4.6 mmol/L 3.5-5.1 Chemistry (test code=CL) 99 mmol/L 98-107 Chemistry (test code=CO2) 27 mmol/L 22-29 Chemistry (test code=ANGP) 16 mmol/L 10-20 Chemistry (test code=BUN) 13 mg/dL 7.0-18.7 Chemistry (test code=CREATT) 0.80 mg/dL 0.6-1.1 Chemistry (test code=EGFRMDRD) 82 Reference Range for Estimated GFR: Greater than 90 mL/min/1.73 m2NOTE:The MDRD equation has not been validated for use with theelderly (over 70 years of age), women, patien tswith serious comorbid condition or persons with extremes ofbody size, muscle mass, or nutritional status. Chemistry (test code=GLU-T) 76 mg/dL 70-105 Chemistry (test code=CA) 9.3 mg/dL 7.8-10.44 [id number] 11:07:00* Test Item Value Reference Range Comments Chemistry (test code=CREATT) 0.81 mg/dL 0.6-1.1 Chemistry (test code=EGFRMDRD) 81 Reference Range for Estimated GFR: Greater than 90 mL/min/1.73 m2NOTE:The MDRD equation has not been validated for use with therocerly (over 70 years of age), women, patien tswith serious comorbid condition or persons with extremes ofbody size, muscle mass, or nutritional status. [id number] 11:05:00* Test Item Value Reference Range Comments Hematology (test code=HGBT) 11.7 g/dL 12.0-16.0 Hematology (test code=HCTT) 39.8 % 36.0-47.0 Hematology (test code=PLTT) 278 thou/uL 130-400 Aldxvvtws3049-62-78 06:05:00* Test Item Value Reference Range Comments Chemistry (test code=NA-T) 138 mmol/L 136-145 Chemistry (test code=K-T) 4.3 mmol/L 3.5-5.1 Chemistry (test code=CL) 100 mmol/L 98-107 Chemistry (test code=CO2) 29 mmol/L 22-29 Chemistry (test code=ANGP) 13 mmol/L 10-20 Chemistry (test code=BUN) 18 mg/dL 7.0-18.7 Chemistry (test code=CREATT) 0.83 mg/dL 0.6-1.1 Chemistry (test code=EGFRMDRD) 79 Reference Range for Estimated GFR: Greater than 90 mL/min/1.73 m2NOTE:The MDRD equation has not been validated for use with theelderly (over 70 years of age), women, patien tswith serious comorbid condition or persons with extremes ofbody size, muscle mass, or nutritional status. Chemistry (test code=GLU-T) 80 mg/dL 70-105 Chemistry (test code=CA) 9.1 mg/dL 7.8-10.44 [id number] 05:46:00* Test Item Value Reference Range Comments Chemistry (test code=NA-T) 137 mmol/L 136-145 Chemistry (test code=K-T) 4.1 mmol/L 3.5-5.1 Chemistry (test code=CL) 101 mmol/L 98-107 Chemistry (test code=CO2) 27 mmol/L 22-29 Chemistry (test code=ANGP) 13 mmol/L 10-20 Chemistry (test code=BUN) 20 mg/dL 7.0-18.7 Chemistry (test code=CREATT) 0.78 mg/dL 0.6-1.1 Chemistry (test code=EGFRMDRD) 85 Reference Range for Estimated GFR: Greater than 90 mL/min/1.73 m2NOTE:The MDRD equation has not been validated for use with the[facility] (over 70 years of age), women, patien tswith serious comorbid condition or persons with extremes ofbody size, muscle mass, or nutritional status. Chemistry (test code=GLU-T) 103 mg/dL 70-105 Chemistry (test code=CA) 8.7 mg/dL 7.8-10.44 [id number] 08:15:00* Test Item Value Reference Range Comments Chemistry (test code=NA-T) 136 mmol/L 136-145 Chemistry (test code=K-T) 4.1 mmol/L 3.5-5.1 Chemistry (test code=CL) 99 mmol/L 98-107 Chemistry (test code=CO2) 30 mmol/L 22-29 Chemistry (test code=ANGP) 11 mmol/L 10-20 Chemistry (test code=BUN) 19 mg/dL 7.0-18.7 Chemistry (test code=CREATT) 0.78 mg/dL 0.6-1.1 Chemistry (test code=EGFRMDRD) 85 Reference Range for Estimated GFR: Greater than 90 mL/min/1.73 m2NOTE:The MDRD equation has not been validated for use with theelderly (over 70 years of age), women, patien tswith serious comorbid condition or persons with extremes ofbody size, muscle mass, or nutritional status. Chemistry (test code=GLU-T) 81 mg/dL 70-105 Chemistry (test code=CA) 8.8 mg/dL 7.8-10.44 Beqicitqbe1770-43-96 07:52:00* Test Item Value Reference Range Comments Hematology (test code=HGBT) 11.0 g/dL 12.0-16.0 Hematology (test code=HCTT) 36.5 % 36.0-47.0 Hematology (test code=PLTT) 253 thou/uL 130-400 Point of Care [id number] 12:20:00* Test Item Value Reference Range Comments Point of Care Testing (test code=ACTCL) 137 sec 96-166 Upkkmqiah1695-42-12 06:00:00* Test Item Value Reference Range Comments Chemistry (test code=NA-T) 138 mmol/L 136-145 Chemistry (test code=K-T) 4.5 mmol/L 3.5-5.1 Chemistry (test code=CL) 100 mmol/L 98-107 Chemistry (test code=CO2) 29 mmol/L 22-29 Chemistry (test code=ANGP) 14 mmol/L 10-20 Chemistry (test code=BUN) 29 mg/dL 7.0-18.7 Chemistry (test code=CREATT) 1.04 mg/dL 0.6-1.1 Chemistry (test code=EGFRMDRD) 61 Reference Range for Estimated GFR: Greater than 90 mL/min/1.73 m2NOTE:The MDRD equation has not been validated for use with theelderly (over 70 years of age), women, patien tswith serious comorbid condition or persons with extremes ofbody size, muscle mass, or nutritional status. Chemistry (test code=GLU-T) 96 mg/dL 70-105 Chemistry (test code=CA) 9.2 mg/dL 7.8-10.44 Tyhctsvra5329-31-25 07:46:00* Test Item Value Reference Range Comments Chemistry (test code=CREATT) 0.95 mg/dL 0.6-1.1 Chemistry (test code=EGFRMDRD) 67 Reference Range for Estimated GFR: Greater than 90 mL/min/1.73 m2NOTE:The MDRD equation has not been validated for use with theelderly (over 70 years of age), women, patien tswith serious comorbid condition or persons with extremes ofbody size, muscle mass, or nutritional status. Cwxibzcuhx8615-78-01 07:23:00* Test Item Value Reference Range Comments Hematology (test code=HGBT) 11.5 g/dL 12.0-16.0 Hematology (test code=HCTT) 37.6 % 36.0-47.0 Hematology (test code=PLTT) 280 thou/uL 130-400 Culture, [id number] 14:16:00* Test Item Value Reference Range Comments Culture, Urine (test code=URC) Urine specimen contains 3 or more different organisms, Culture, Urine (test code=URC1) clinically indicated. Culture, Urine (test code=URC1) NF Culture, Urine (test code=URC1) 75 MSF [id number] 05:37:00* Test Item Value Reference Range Comments Chemistry (test code=NA-T) 137 mmol/L 136-145 Chemistry (test code=K-T) 3.8 mmol/L 3.5-5.1 Chemistry (test code=CL) 99 mmol/L 98-107 Chemistry (test code=CO2) 30 mmol/L 22-29 Chemistry (test code=ANGP) 12 mmol/L 10-20 Chemistry (test code=BUN) 22 mg/dL 7.0-18.7 Chemistry (test code=CREATT) 0.93 mg/dL 0.6-1.1 Chemistry (test code=EGFRMDRD) 69 Reference Range for Estimated GFR: Greater than 90 mL/min/1.73 m2NOTE:The MDRD equation has not been validated for use with theelderly (over 70 years of age), women, patien tswith serious comorbid condition or persons with extremes ofbody size, muscle mass, or nutritional status. Chemistry (test code=GLU-T) 79 mg/dL 70-105 Chemistry (test code=CA) 8.6 mg/dL 7.8-10.44 Chemistry - BNP, HgbA1c, [id number] 10:03:00* Test Item Value Reference Range Comments Chemistry - BNP, HgbA1c, PTHi (test code=BNP) 2827.2 pg/mL 0-100 Chemistry - Tojehtsb1460-16-16 07:00:00* Test Item Value Reference Range Comments Chemistry - Specials (test code=FT4) 0.82 ng/dL 0.70-1.48 Esfyuuyie8735-25-92 06:42:00* Test Item Value Reference Range Comments Chemistry (test code=NA-T) 139 mmol/L 136-145 Chemistry (test code=K-T) 3.3 mmol/L 3.5-5.1 Chemistry (test code=CL) 101 mmol/L 98-107 Chemistry (test code=CO2) 27 mmol/L 22-29 Chemistry (test code=ANGP) 14 mmol/L 10-20 Chemistry (test code=BUN) 22 mg/dL 7.0-18.7 Chemistry (test code=CREATT) 0.96 mg/dL 0.6-1.1 Chemistry (test code=EGFRMDRD) 67 Reference Range for Estimated GFR: Greater than 90 mL/min/1.73 m2NOTE:The MDRD equation has not been validated for use with theelderly (over 70 years of age), women, patien tswith serious comorbid condition or persons with extremes ofbody size, muscle mass, or nutritional status. Chemistry (test code=GLU-T) 81 mg/dL 70-105 Chemistry (test code=CA) 8.8 mg/dL 7.8-10.44 Chemistry (test code=TBILI) 1.4 mg/dL 0.2-1.2 Chemistry (test code=TP) 6.3 g/dL 6.0-8.3 Chemistry (test code=ALB) 3.1 g/dL 3.5-5.0 Chemistry (test code=GLOB) 3.2 g/dL 2.4-3.5 Chemistry (test code=AG) 1.0 g/dL 1.2-2.2 Chemistry (test code=ALP) 50 U/L 40-150 Chemistry (test code=AST) 63 U/L 5-34 Chemistry (test code=ALT) 42 U/L 8-55 [id number] 06:42:00* Test Item Value Reference Range Comments Chemistry (test code=CHOL) 112 mg/dl < 200 Desired Chemistry (test code=TRIG) 73 mg/dL Less than 150 Chemistry (test code=HDL) 18 mg/dL >60 Neg Risk Adult HDL levels in terms of risk for Coronary Heart Disease > or Equal to 60 mg/dL Negative Risk < 40 mg/dL HIGH Risk Chemistry (test code=LDL) 79 mg/dL Levels in terms of risk for coronary heart disease: Desirable: Less than 130 mg/dL Borderline High Risk: 130 - 159 mg/dL High Risk: Greater than 160 mg/dL Chemistry (test code=CRISK) 6.2 Less than 4.5 Adult levels in terms of risk for Coronary Heart Disease: Dangerous level: Greater than 8.3 High: 5.6 - 8.3 Average: 3.7 - 5.6 Below average: 2.5 - 3.7 Protection probable: Less than 2.5 [id number] 06:33:00* Test Item Value Reference Range Comments Hematology (test code=WBCT) 8.9 thou/uL 4.8-10.8 Hematology (test code=RBCT) 4.66 mill/uL 4.20-5.40 Hematology (test code=HGBT) 11.3 g/dL 12.0-16.0 Hematology (test code=HCTT) 36.3 % 36.0-47.0 Hematology (test code=MCV) 77.8 fL 78.0-98.0 Hematology (test code=MCH) 24.2 pg 27.0-31.0 Hematology (test code=MCHC) 31.1 g/dL 32.0-36.0 Hematology (test code=RDW) 15.3 % 11.5-14.5 Hematology (test code=PLTT) 281 thou/uL 130-400 Hematology (test code=MPV) 7.8 fL 7.4-10.4 Hematology (test code=NE) 68 % 42-75 Hematology (test code=LY) 29 % 21-51 Hematology (test code=MO) 2 % 0-10 Hematology (test code=EO) 1 % 0-10 Chemistry - BNP, HgbA1c, [id number] 06:25:00* Test Item Value Reference Range Comments Chemistry - BNP, HgbA1c, PTHi (test code=CWZY1IV) 5.8 % 4.0-6.0 Therapeutic goals for glycemic control (ADA)Adults:- Goal of therapy: Less than 7.0% HbA1c- Action suggested: Greater than 8.0% [id number] patients:- Toddlers and preschoolers: Less than 8.5% (but Greater than 7.5%)- School age (6-12 years): Less than 8%- Adolescents and young adults (13-19 years): Less than 7.5%Diagnosing diabetes (ADA)- HbA1c: Greater than or equal to 6.5% Values of 5.7 - 6.4% indicate HIGH risk for developing DiabetesInternational Expert Committee Report on the Role of the W4KEmjog in the Diagnosis of Diabetes. Diabetes Care 2009July;32(7):1327-1334ADA, Diagnosis classification of diabetes mellitus.Diabetes Care 2010; 33 Suppl 1:S62 [id number] 22:31:00* Test Item Value Reference Range Comments Chemistry (test code=CCTPI) RESULT DECREASING Chemistry (test code=TROPI-T) 14.503 ng/mL < 0.028 Critical value! Reference Range 0.00 - 0.028 ng/mL Negative 0.029 - 0.29 ng/mL Indeterminate Greater or Equal to 0.3 ng/mL Strongly suggests AL Chemistry - [id number] 22:20:00* Test Item Value Reference Range Comments Chemistry - Lactate (test code=LACT-T) 1.7 mmol/L 0.5-2.2 [id number] 19:39:00* Test Item Value Reference Range Comments Chemistry (test code=CCTPI) NURTAW2@1916 Chemistry (test code=TROPI-R) 15.458 ng/mL < 0.028 Critical value! Reference Range 0.00 - 0.028 ng/mL Negative 0.029 - 0.29 ng/mL Indeterminate Greater or Equal to 0.3 ng/mL Strongly suggests AL Chemistry (test code=CCTPI) NURTAW2@1916 Chemistry (test code=TROPI-R) 15.458 ng/mL < 0.028 Critical value! Reference Range 0.00 - 0.028 ng/mL Negative 0.029 - 0.29 ng/mL Indeterminate Greater or Equal to 0.3 ng/mL Strongly suggests AL [id number] 19:39:00* Test Item Value Reference Range Comments Chemistry (test code=CCCK) NURKAM2@1938 [id number] 19:39:00* Test Item Value Reference Range Comments Chemistry (test code=CKMBM-T) 10.5 ng/mL 0-6.6 Critical value! [id number] 16:39:00* Test Item Value Reference Range Comments Chemistry (test code=CCCK) CALLED W/READ BACK [id number] 16:39:00* Test Item Value Reference Range Comments Chemistry (test code=CKMBM-T) 9.3 ng/mL 0-6.6 This is a CRITICAL VALUEResults called to: []Results called and verbally verified through "read-back".by on 03/04/18 at 1639. [id number] 16:39:00* Test Item Value Reference Range Comments Chemistry (test code=CCTPI) CALLED W/ READ BACK Chemistry (test code=TROPI-R) 18.121 ng/mL < 0.028 Reference Range 0.00 - 0.028 ng/mL Negative 0.029 - 0.29 ng/mL Indeterminate Greater or Equal to 0.3 ng/mL Strongly suggests AL Chemistry - [id number] 16:06:00* Test Item Value Reference Range Comments Chemistry - Specials (test code=TSH3) 13.2594 uIU/mL 0.35-4.94 Chemistry - BNP, HgbA1c, [id number] 15:59:00* Test Item Value Reference Range Comments Chemistry - BNP, HgbA1c, PTHi (test code=BNP) 3070.9 pg/mL 0-100 [id number] 15:07:00* Test Item Value Reference Range Comments Hematology (test code=WBCT) 10.1 thou/uL 4.8-10.8 Hematology (test code=RBCT) 5.30 mill/uL 4.20-5.40 Hematology (test code=HGBT) 12.2 g/dL 12.0-16.0 Hematology (test code=HCTT) 38.4 % 36.0-47.0 Hematology (test code=MCV) 72.5 fL 78.0-98.0 Hematology (test code=MCH) 23.1 pg 27.0-31.0 Hematology (test code=MCHC) 31.9 g/dL 32.0-36.0 Hematology (test code=RDW) 14.6 % 11.5-14.5 Hematology (test code=PLTT) 339 thou/uL 130-400 Hematology (test code=MPV) 6.4 fL 7.4-10.4 Hematology (test code=%NEUT) 76.1 % 42.0-75.0 Hematology (test code=%LYMPH) 18.1 % 21.0-51.0 Hematology (test code=%MONO) 4.8 % 0.0-10.0 Hematology (test code=%EOS) 0.2 % 0.0-10.0 Hematology (test code=%BASO) 0.8 % 0.0-1.0 Hematology (test code=NEUT#) 7.7 thou/uL 1.40-6.50 Hematology (test code=LYMPH#) 1.8 thou/uL 1.20-3.40 Hematology (test code=MONO#) 0.5 thou/uL 0.11-0.59 Hematology (test code=EOS#) 0.0 thou/uL 0.0-0.7 Hematology (test code=BASO#) 0.1 thou/uL 0.0-0.2 Hematology (test code=AL) MODERATE=15-30 cells (100X) 0-5/hpf Hematology (test code=HYPO) MODERATE=16-30 cells (100X) 0-5/hpf Hematology (test code=OV) SLIGHT=2-5 cells (100X) 0-1/hpf [id number] 15:06:00* Test Item Value Reference Range Comments Chemistry (test code=NA-T) 140 mmol/L 136-145 Chemistry (test code=K-T) 3.6 mmol/L 3.5-5.1 Chemistry (test code=CL) 100 mmol/L 98-107 Chemistry (test code=CO2) 26 mmol/L 22-29 Chemistry (test code=ANGP) 18 mmol/L 10-20 Chemistry (test code=BUN) 19 mg/dL 7.0-18.7 Chemistry (test code=CREATT) 1.03 mg/dL 0.6-1.1 Chemistry (test code=EGFRMDRD) 61 Reference Range for Estimated GFR: Greater than 90 mL/min/1.73 m2NOTE:The MDRD equation has not been validated for use with theelderly (over 70 years of age), women, patien tswith serious comorbid condition or persons with extremes ofbody size, muscle mass, or nutritional status. Chemistry (test code=GLU-T) 125 mg/dL 70-105 Chemistry (test code=CA) 9.0 mg/dL 7.8-10.44 Chemistry (test code=TBILI) 1.5 mg/dL 0.2-1.2 Chemistry (test code=TP) 7.1 g/dL 6.0-8.3 Chemistry (test code=ALB) 3.5 g/dL 3.5-5.0 Chemistry (test code=GLOB) 3.6 g/dL 2.4-3.5 Chemistry (test code=AG) 1.0 g/dL 1.2-2.2 Chemistry (test code=ALP) 56 U/L 40-150 Chemistry (test code=AST) 64 U/L 5-34 Chemistry (test code=ALT) 46 U/L 8-55 [id number] 15:06:00* Test Item Value Reference Range Comments Chemistry (test code=LIP) 124 U/L 8-78 [id number] 14:50:00* Test Item Value Reference Range Comments Urinalysis (test code=BHCGUT) Negative Negative Method of sensitivity- INDETERMINANT: results should be repeated after 48-72 hrs POSITIVE: results may be detected as early as 1 day after the first missed period A dilute urine specimen may not contain representativelevels of hCG.If is still suspected, a first morning urinespecimen OR a random blood specimen should be obtainedfrom the patient 48- 72 hours later and re-tested. Urinalysis (test code=PREGUSG) 1.025 1.002-1.036 [id number] 14:47:00* Test Item Value Reference Range Comments Urinalysis (test code=UACLR) Yellow Yellow Urinalysis (test code=UACLY) Slightly Cloudy Clear Urinalysis (test code=SPGR) 1.025 1.005-1.030 Urinalysis (test code=JULIAN) 6.5 5.0-9.0 Urinalysis (test code=UALEU) Negative Negative Urinalysis (test code=UANIT) Negative Negative Urinalysis (test code=PROUADIP) > or equal to 300 mg/dL Neg-Trace Urinalysis (test code=GLUCU) Negative mg/dL Negative Urinalysis (test code=KETU) Negative mg/dL Negative Urinalysis (test code=UAUROB) 1.0 mg/dL 0.2-1.0 Urinalysis (test code=UABIL) Small Negative CAUTIONUrine Bilirubin has a high incidence of false positiveresults due to urine color interferance.Interpret results in conjunction with other clinicalfindings. Urinalysis (test code=UABLD) Trace Negative Urine Source: Urine [id number] 14:47:00* Test Item Value Reference Range Comments Urinalysis (test code=UARBC) 0-3 HPF 0-3 Urinalysis (test code=UAWBC) 0-3 HPF 0-3 GLITTER CELLS Urinalysis (test code=UASQUAM) 4-6 HPF 0-3 Urinalysis (test code=UABAC) 3+ HPF None Seen Urine Source: Urine Voided
[2019-04-24] MEDS ORDERED: METOPROLOL TARTRATE INJ 1 MG/ML VIAL ONE (14:45)
--- NOTE | 2019-04-24 15:24 | NUR ---
blood walked to lab
--- NOTE | 2019-04-24 15:43 | Diagnostic Imaging Report ---
EXAMINATION: CHEST SINGLE (PORTABLE) INDICATION: Chest pain. COMPARISON: None FINDINGS: TUBES and LINES: None. LUNGS: Lungs are well inflated. Central vascular congestion with mild interstitial opacities. PLEURA: No pleural effusion or pneumothorax. HEART AND MEDIASTINUM: There is severe enlargement of the cardiomediastinal silhouette. BONES AND SOFT TISSUES: No acute osseous abnormality. Status post median sternotomy. UPPER ABDOMEN: No free air under the diaphragm. IMPRESSION: Severe enlargement of the cardiomediastinal silhouette, which may represent cardiomegaly or large pericardial effusion. Suggest clinical correlation. Mild pulmonary interstitial edema. Signed by: Dr. Brandan Corona MD on 04/24/2019 3:41 PM
[2019-04-24 15:47] LABS: BASOPHILS % 0.3 % (0.0-1.0); EOSINOPHILS # (AUTO) 0.3 (0.0-0.4); EOSINOPHILS % 3.9 % (0.0-6.0); HEMATOCRIT 40.3 % (34.2-44.1); HEMOGLOBIN 13.2 g/dL (12.0-16.0); LYMPHOCYTES # (AUTO) 2.1 (1.0-3.2); LYMPHOCYTES % 24.3 % (18.0-39.1); MEAN CORPUSCULAR HEMOGLOBIN 28.3 pg (28-32); MEAN CORPUSCULAR HGB CONC 32.8 g/dL (31-35); MEAN CORPUSCULAR VOLUME 86.5 fL (81-99); MONOCYTES # (AUTO) 0.5 (0.2-0.8); MONOCYTES % 5.3 % (4.4-11.3); NEUTROPHILS # (AUTO) 5.8 (2.1-6.9); NEUTROPHILS % 65.9 % (38.7-80.0); PLATELET COUNT 239 x10e3/uL (140-360); RED BLOOD COUNT 4.66 x10e6/uL (3.6-5.1); RED CELL DISTRIBUTION WIDTH 13.3 % (11.7-14.4)
[2019-04-24] MEDS ORDERED: LOSARTAN POTASSIUM 100 MG TAB PO ONE (16:00)
[2019-04-24 16:02] LABS: ALANINE AMINOTRANSFERASE 28 IU/L (0-55); ALBUMIN 4.1 g/dL (3.5-5.0); ALKALINE PHOSPHATASE 56 IU/L (40-150); ANION GAP 15.4 mmol/L (8-16); BLOOD UREA NITROGEN 10 mg/dL (7-26); BUN/CREATININE RATIO 12 (6-25); CALCIUM 9.8 mg/dL (8.4-10.2); CARBON DIOXIDE 27 mmol/L (22-29); CHLORIDE 101 mmol/L (98-107); CREATINE KINASE 217 IU/L (29-168); CREATININE, SERUM 0.85 mg/dL (0.57-1.11); EST GLOMERULAR FILTRATION RATE > 60 ML/MIN (60-); GLUCOSE 150 mg/dL (74-118); POTASSIUM 3.4 mmol/L (3.5-5.1); SODIUM 140 mmol/L (136-145)
[2019-04-24] MEDS ORDERED: ESMOLOL HCL 2500MG/250 ML 250 ML IV STA ×2 (16:49→17:04)
[2019-04-24] MEDS ORDERED: SODIUM CHLORIDE 0.9% 100 ML ONE (17:46)
[2019-04-24] MEDS ORDERED: IOPAMIDOL 370 MG/ML 200 ML INFUS..BTL INJ ONE (17:46)
--- NOTE | 2019-04-24 17:48 | NUR ---
SPOKE WITH PHARMACY REGARDING PATIENTS ESMOLOL LOADING DOSE. WAS TOLD TO DRAW LOADING DOSE FROM ESMOLOL BAG AND PUSH OVER 1 MINUTE.
--- NOTE | 2019-04-24 18:35 | Diagnostic Imaging Report ---
EXAM: CT Angiogram Chest without and with contrast INDICATION: Shortness of breath, cough, query effusion. COMPARISON: None. TECHNIQUE: Chest was scanned utilizing a multidetector helical scanner from the lung apex through the level of the adrenal glands before and after administration of IV contrast in arterial phase. Coronal and sagittal reformations were obtained. CT Angiogram protocol was performed. Dose modulation, iterative reconstruction, and/or weight based adjustment of the mA/kV was utilized to reduce the radiation dose to as low as reasonably achievable. IV CONTRAST: 100 mL of Omnipaque 300 RADIATION DOSE: Total DLP: 1245 mGy*cm COMPLICATIONS: None FINDINGS: VASCULAR FINDINGS: Examination is limited by contrast bolus timing. Thoracic aorta: Aortic Annulus/Sinuses of Valsalva: Not well evaluated given aortic valve replacement. Ascending Aorta at level of PA: 3.9 cm Mid Arch: 3.3 cm Proximal Descendin.6 cm Mid Descendin.5 cm Distal Descendin.3 cm Aortic hiatus: 2.3 cm. No evidence of intramural hematoma or aortic dissection. No significant atherosclerotic changes within the thoracic aorta. The main pulmonary artery measures up to 3.4 cm. No evidence of central pulmonary embolism. LINES/ TUBES: None. LUNGS AND AIRWAYS: The central airways are patent. Scattered dependent linear subsegmental atelectasis. Mild mosaic attenuation, which may represent air trapping. No evidence of pneumonia or pulmonary edema. PLEURA: The pleural spaces are clear. HEART AND MEDIASTINUM: There is a moderate to large pericardial effusion (measuring simple fluid attenuation at 11 HU on series 3, image 39), which measures up to 4.1 cm in thickness. Mild cardiomegaly. Status post aortic valve replacement. Coarse calcification within the left thyroid gland. No mediastinal, hilar or axillary lymphadenopathy. UPPER ABDOMEN: Limited contrast-enhanced views of the upper abdomen. Diffuse hepatic steatosis. BONES/SOFT TISSUES: No acute osseous abnormality. No suspicious lytic or blastic lesion. IMPRESSION: Moderate to large pericardial effusion, measuring up to 4.1 cm in thickness. Status post aortic valve replacement. Mild cardiomegaly. Somewhat limited examination secondary to contrast bolus timing. No specific evidence of acute aortic pathology. Ectasia of the ascending aorta, measuring up to 3.9 cm without aneurysm. Mildly dilated main pulmonary artery, measuring up to 3.4 cm, suggestive of pulmonary arterial hypertension. Signed by: Dr. Brandan Corona MD on 04/24/2019 6:33 PM
--- NOTE | 2019-04-24 18:51 | NUR ---
REPORT GIVEN TO AYLIN PITTS
--- NOTE | 2019-04-24 19:05 | NUR ---
bp 173/121. md order to maintain dbp less than or equal to 100. esmolol increased 60mcg/kg/min.
--- NOTE | 2019-04-24 19:30 | NUR ---
bp 156/123. esmolol increased to 70mcg/min/kg
[2019-04-24 20:17] LABS: INR 0.96; PROTHROMBIN TIME 13.4 seconds (11.9-14.5)
[2019-04-24 20:56] VITALS: BP 144/104
== END 2019-04-24 21:10 | disposition short-term general hospital (02) ==
LOC: ER 14:07
DX: R06.09 Other forms of dyspnea (principal); I36.1 Nonrheumatic tricuspid (valve) insufficiency; I42.5 Other restrictive cardiomyopathy; I20.9 Angina pectoris, unspecified; I30.0 Acute nonspecific idiopathic pericarditis; I51.7 Cardiomegaly; I10 Essential (primary) hypertension; E78.5 Hyperlipidemia, unspecified; E03.9 Hypothyroidism, unspecified; F41.9 Anxiety disorder, unspecified; I25.2 Old myocardial infarction
CPT/HCPCS: 36415; 71045; 71275; 80053; 82550; 82553; 83880; 84484; 84702; 85025; 85610; 93005; 99284; J7050; Q9967